=== PATIENT | male | born 1975 | race Caucasian/White ===

== ENCOUNTER 2022-03-29 07:03 | Emergency (ER) | payer OTHER ==
[~2022-03-29] VITALS: Ht 175.3 cm; Wt 113.6 kg
[2022-03-29 07:12] VITALS: TEMP 97.7
[2022-03-29] MEDS ORDERED: ZOFRAN ODT4 MG PO (08:38)
[2022-03-29] MEDS ORDERED: NORCO 325 MG-51 TAB PO (08:38)
[2022-03-29] MEDS ORDERED: ROBAXIN 75750 MG/TAB PO (08:38)
[2022-03-29 08:41] VITALS: BP 160/98; PULSE 65
== END 2022-03-29 08:47 | disposition home or self-care (01) ==
LOC: COL.ER 07:03
DX: S01.01XA Laceration without foreign body of scalp, initial encounter (principal); S60.413A Abrasion of left middle finger, initial encounter; S60.417A Abrasion of left little finger, initial encounter; M25.511 Pain in right shoulder; V49.40XA Driver injured in collision with unspecified motor vehicles in traffic accident, initial encounter; Y92.410 Unspecified street and highway as the place of occurrence of the external cause
CPT/HCPCS: J1885